=== PATIENT | male | born 1965 | race Caucasian/White ===

== ENCOUNTER 2017-05-24 11:23 | Day surgery (SDC) | payer OTHER ==
[2017-05-24] MEDS ORDERED: LACTATED RINGERS 1,000 ML IV ONE ×2 (11:56→13:46)
[2017-05-24] MEDS ORDERED: MIDAZOLAM 2 MG/2 ML VIAL IVP ONE (12:33)
[2017-05-24] MEDS ORDERED: fentaNYL 100 MCG/2 ML VIAL IVP ONE (12:33)
[2017-05-24] MEDS ORDERED: ONDANSETRON 4 MG/2 ML VIAL IVP ONE (12:33)
[2017-05-24] MEDS ORDERED: GLUCAGON 1 MG/ML VIAL IM ONE (12:33)
[2017-05-24] MEDS ORDERED: ONDANSETRON 4 MG/2 ML VIAL ONE (14:00)
[2017-05-24 14:03] VITALS: BP 126/69
== END 2017-05-24 11:24 | disposition home or self-care (01) ==
LOC: SDS 11:23
PROVIDERS: ATTEND Surgery
PROC: 0DBE8ZX Excision of Large Intestine, Via Natural or Artificial Opening Endoscopic, Diagnostic (ICD-10-PCS; principal; 2017-05-24 12:45)
DX: Z12.11 Encounter for screening for malignant neoplasm of colon (principal); K57.90 Diverticulosis of intestine, part unspecified, without perforation or abscess without bleeding; D12.4 Benign neoplasm of descending colon; D12.0 Benign neoplasm of cecum; K62.1 Rectal polyp; I10 Essential (primary) hypertension
CPT/HCPCS: 45384; J7120

== ENCOUNTER 2017-07-12 12:07 | Emergency (ER) | payer OTHER ==
--- NOTE | 2017-07-12 12:52 | XRAY Preliminary Report ---
Exam: XR FOOT 3 VIEW LT IMPRESSION: 1. Nondisplaced intra-articular fracture proximal second middle phalanx. 2. Suspect chronic deformity/deficiency distal third middle phalanx with deformity/degenerative soliman es of the third DIP joint. 3. Soft tissue swelling. 4. Multifocal osteoarthritis, as described. [facility] SITE ID: [id number]
--- NOTE | 2017-07-12 12:54 | XRAY Report ---
EXAM: LEFT FOOT RADIOGRAPHY EXAM DATE: 07/12/2017 12:31 PM. CLINICAL HISTORY: Stubbed second and third toes yesterday. COMPARISON: None. TECHNIQUE: 3 views. FINDINGS: Bones: Essentially nondisplaced oblique fracture of lateral proximal second middle phalanx with intra -articular extension. Deformity/deficiency of distal aspect of third middle phalanx with sclerotic di stal margins, more suggestive of chronic than acute process. Joints: No subluxation. Deformity and degenerative changes third DIP joint. Congenital synostosis fif th DIP joint. Multifocal moderate osteoarthritis of intertarsal, tarsometatarsal, and first MTP joint s. Soft Tissues: Moderate dorsal swelling especially forefoot. IMPRESSION: 1. Nondisplaced intra-articular fracture proximal second middle phalanx. 2. Suspect chronic deformity/deficiency distal third middle phalanx with deformity/degenerative soliman es of the third DIP joint. 3. Soft tissue swelling. 4. Multifocal osteoarthritis, as described. [facility] Referring Provider Line: [phone] SITE ID: [id number]
--- NOTE | 2017-07-12 15:19 | ED Physician Documentation ---
History of Present Illness - Stated complaint Stated Complaint: LT TOE INJ - Chief complaint Chief Complaint: Ext Problem - Additonal information Additional information: hx from pt 51 male jumped onto porch steps and slipped and jammed his L 2nd and 3rd toes no other injuries Review of Systems Musculoskeletal: reports: Other (foot pain) PD PAST MEDICAL HISTORY - Past Medical History Past Medical History: Yes Cardiovascular: Hypertension, High cholesterol Respiratory: None GI: None : None Musculoskeletal: Osteoarthritis, Gout Derm: None - Past Surgical History General: Colonoscopy HEENT: Tonsil/Adenoidectomy - Present Medications Home Medications: Ambulatory Orders Medication Instructions Recorded Confirmed Allopurinol 300 mg PO DAILY 05/23/17 07/12/17 Colchicine 0.6 mg PO DAILY 05/24/17 07/12/17 Lisinopril [Zestril] 10 mg PO DAILY 07/12/17 07/12/17 - Allergies Allergies/Adverse Reactions: Allergies Allergy/AdvReac Type Severity Reaction Status Date / Time No Known Drug Allergies Allergy Verified 05/23/17 13:31 - Social History Does the pt smoke?: No Smoking Status: Never smoker Does the pt drink ETOH?: No Does the pt have substance abuse?: No - Immunizations Immunizations are current?: Yes - POLST Patient has POLST: No PD ED PE NORMAL - Vitals Vital signs reviewed: Yes - Extremities Extremities: Other (tenderness and bruising to mid 2nd toe, no deformity, TTP distal third toe no deformity, old subungal to 2st toe) Results - Vitals Vitals: Vital Signs - 24 hr 07/12/17 12:14 Temperature 36.2 C L Heart Rate 81 Respiratory 18 Rate Blood Pressure 167/107 H O2 Saturation 97 Oxygen O2 Source Room air - Rads (name of study) foot Radiology: See rad report (non displaced fx mid pahlanx 2nd toe and possibly old fx distal thrid phalange) Departure - Departure Disposition: 01 Home, Self Care Clinical Impression: Toe fracture, left Qualifiers: Encounter type: initial encounter Toe: lesser toe Fracture type: closed Phalanx : middle Fracture alignment: nondisplaced Qualified Code(s): S92.525A - Nondisplaced fracture of middle phalanx of left lesser toe(s), initial encounter for closed fracture Condition: Good Instructions: ED Fx Toe Closed Comments: Wear a stiff soled shoe to prevent the toes from bending Ice motrin and tylenol as needed for the pain Please follow up with your PMD to get your blood pressure rechecked - it was high today
[2017-07-12 15:45] VITALS: BP 146/92
== END 2017-07-12 16:05 | disposition home or self-care (01) ==
LOC: ED 12:07
DX: S92.525A Nondisplaced fracture of middle phalanx of left lesser toe(s), initial encounter for closed fracture (principal); W01.198A Fall on same level from slipping, tripping and stumbling with subsequent striking against other object, initial encounter; Y92.019 Unspecified place in single-family (private) house as the place of occurrence of the external cause; I10 Essential (primary) hypertension; E78.00 Pure hypercholesterolemia, unspecified; M19.90 Unspecified osteoarthritis, unspecified site; M10.9 Gout, unspecified
CPT/HCPCS: 99283